=== PATIENT | female | born 1975 | race Caucasian/White ===

== ENCOUNTER → 2020-12-10 | Outpatient (CLI) | payer BC ==
[2020-12-10 11:31] LABS: MEAN CORP HGB 27.8 pg (26-34); RED CELL DISTRIBUTION WIDTH 12.9 % (11.5-14.5)
== END | disposition home or self-care (01) ==
LOC: LAB 11:16
PROVIDERS: ATTEND Nurse Practitioner Women's Health
DX: E11.9 Type 2 diabetes mellitus without complications (principal); N93.9 Abnormal uterine and vaginal bleeding, unspecified
CPT/HCPCS: 36415; 83001; 83036; 84439; 84443; 85027

== ENCOUNTER → 2020-12-13 | Outpatient (CLI) | payer BC ==
--- NOTE | 2020-12-15 08:56 | DIREP ---
PROCEDURE:US PELVIC FOLLOWED BY TRANSVAGINAL COMPARISON:None. INDICATIONS:ABNORMAL UTERINE AND VAGINAL BLEEDING, LLQ PAIN TECHNIQUE:Pelvic ultrasound using transabdominal technique. Endovaginal images were also obtained for better assessment of the uterus and adnexa.. FINDINGS: Uterus Uterus Length:13.0 cm Uterus Height:7.59 cm Uterus Width:7.98 cm Endometrium Thickness:1.01 cm Ovaries Right Ovary Width:2.50 cm Right Ovary Length:2.76 cm Right Ovary Height:1.22 cm Left Ovary Width:2.54 cm Left Ovary Length:4.07 cm Left Ovary Height:2.71 cm UTERUS:2 solid lesions are seen within the anterior myometrium, consistent with fibroids. These measure 3.2 x 2.6 cm in greatest dimension respectively. Normal endometrium. OVARIES:Normal bilateral appearance with no significant masses. Each ovary is normal in size for a patient of this age. Dominant left ovarian follicle. CUL-DE-SAC:Negative. OTHER:Negative. CONCLUSION:1. Two uterine fibroids, measuring up to 3.2 cm. 2. No acute abnormality noted. Dictated by: Shane Castillo M.D. on 12/15/2020 at 08:52 AM
== END | disposition home or self-care (01) ==
LOC: RAD 15:01
PROVIDERS: ATTEND Nurse Practitioner Women's Health
DX: N93.9 Abnormal uterine and vaginal bleeding, unspecified (principal); D25.9 Leiomyoma of uterus, unspecified
CPT/HCPCS: 76830; 76856